=== PATIENT | male | born 1945 | race Caucasian/White ===

== ENCOUNTER → 2021-08-11 | Outpatient (CLI) | payer MEDICARE | LOC: ORTHO 10:43 | PROVIDERS: ATTEND Orthopaedic Surgery | DX: M65.332 Trigger finger, left middle finger (principal); M75.52 Bursitis of left shoulder | CPT/HCPCS: 20551; G0463 ==

== ENCOUNTER → 2021-09-01 | Outpatient (CLI) | payer MEDICARE | LOC: ORTHO 10:31 | PROVIDERS: ATTEND Orthopaedic Surgery | DX: M19.042 Primary osteoarthritis, left hand (principal); M75.52 Bursitis of left shoulder; M65.332 Trigger finger, left middle finger | CPT/HCPCS: 99212 ==

== ENCOUNTER → 2021-10-08 | Outpatient (CLI) | payer MEDICARE | LOC: ORTHO 16:30 | PROVIDERS: ATTEND Orthopaedic Surgery | DX: M19.042 Primary osteoarthritis, left hand (principal); G56.92 Unspecified mononeuropathy of left upper limb | CPT/HCPCS: 99212 ==

== ENCOUNTER → 2022-05-06 | Outpatient (CLI) | payer MEDICARE | LOC: ORTHO 14:12 | PROVIDERS: ATTEND Orthopaedic Surgery | DX: M19.041 Primary osteoarthritis, right hand (principal); M19.042 Primary osteoarthritis, left hand | CPT/HCPCS: 99213 ==

== ENCOUNTER → 2022-07-13 | Outpatient (CLI) | payer MEDICARE ==
--- NOTE | 2022-07-13 18:24 | Diagnostic Imaging Report ---
INDICATION: Right hand pain COMPARISON: None available TECHNIQUE: 3 radiographs of the right hand dated 07/13/2022. FINDINGS: No acute fracture or dislocation. No destructive osseous process. Mild scattered joint space narrowing is noted, including scattered interphalangeal joints as well as the 2nd MCP joint. Punctate radiopaque density is noted within the soft tissues lateral to the 2nd digit proximal phalanx. Carpal alignment is well-maintained. IMPRESSION: No acute osseous abnormality with minimal degenerative changes for age. Punctate radiopaque density within the soft tissues lateral to the 2nd digit proximal phalanx. Recommend correlation and direct visualization as this could relate to a punctate foreign body within the skin and underlying subcutaneous tissues. Dictated by: Dictated on workstation # [id number]
== END ==
LOC: ORTHO 13:16
PROVIDERS: ATTEND Orthopaedic Surgery
DX: M19.041 Primary osteoarthritis, right hand (principal); M65.332 Trigger finger, left middle finger; M19.042 Primary osteoarthritis, left hand
CPT/HCPCS: 20551; 73130; 85652; 86038; 86141; 86431; G0463; 36415

== ENCOUNTER → 2022-11-04 | Outpatient (CLI) | payer MEDICARE | LOC: ORTHO 09:27 | PROVIDERS: ATTEND Orthopaedic Surgery | DX: M79.642 Pain in left hand (principal) | CPT/HCPCS: 20551 ==